=== PATIENT | female | born 1980 | race Caucasian/White ===

== ENCOUNTER 2016-05-04 17:58 | Outpatient (CLI) | payer OTHER ==
[~2016-05-04] VITALS: Ht 154.9 cm; Wt 68.5 kg
[2016-05-04 19:40] VITALS: Ht 154.9 cm; Wt 68.5 kg
--- NOTE | 2016-05-04 19:52 | RADRPT ---
PROCEDURE: US OB. CLINICAL INDICATION: Pelvic pain TECHNIQUE: Multiple sonographic images of the pelvis were obtained. The images were reviewed on a PACS workstation. COMPARISON: No prior studies are available for comparison. FINDINGS: There is a single viable intrauterine gestation. Cardiac activity is present with 161 beats per min matthieu. There is a vertex presentation. The placenta is posterior and grade 1. There is no evidence for an abruption or placenta previa. The proximal volume of amniotic fluid is 4.6 cm. The cervix measures 4.2 cm in length. IMPRESSION: Single live intrauterine with a maximum volume of amniotic fluid of 4.6 cm. RPTAT: HPNM Physician Tre Date Time Electronically viewed and signed by Physician Tre on 05/04/2016 19:52 /
[2016-05-04 20:03] VITALS: BP 107/67; PULSE 98; RESP 18
[2016-05-04] MEDS ORDERED: PRENAT PO (20:06)
[2016-05-04] MEDS ORDERED: FERR325C PO (20:08)
--- NOTE | 2016-05-04 21:20 | QN ---
Documentation Comment 36-year-old with IUP at 24 weeks and 1 day with care at [facility] presented to triage with complaint of pain in right 4 toes. She denies any abnormal discharge from the toes, numbness. She also complains of some cold symptoms. Reports subjective fever. Denies any chills. Denies any sore throat. Reports back pain. Had sick contacts at work. She was noted to be afebrile. Denies any vaginal bleeding, leaking of fluid or uterine contractions or decreased movement. Physical examination: GA: Alert and oriented and is not in acute acute distress. Abdomen: Soft, gravid, fundal height consistent with gestational age, nontender no rebound tenderness no guarding no rigidity HEENT: No lymphadenopathy, no exudates over the tonsils or nasopharynx Lungs: Clear to auscultation bilaterally CV: RRR Extremities: No calf tenderness, no rigidity no cord, no evidence of swelling infection drainage over toes There is evidence of fungus in the big toe of the right foot. No abnormal discharge or drainage no erythema no tenderness next Normal neuro exams. NST: Appropriate for gestational age Cervical length 4.2 cm Amniotic fluid largest pocket measures 4.6 cm PROCEDURE: US OB. CLINICAL INDICATION: Pelvic pain TECHNIQUE: Multiple sonographic images of the pelvis were obtained. The images were reviewed on a PACS workstation. COMPARISON: No prior studies are available for comparison. FINDINGS: There is a single viable intrauterine gestation. Cardiac activity is present with 161 beats per minute. There is a vertex presentation. The placenta is posterior and grade 1. There is no evidence for an abruption or placenta previa. The proximal volume of amniotic fluid is 4.6 cm. The cervix measures 4.2 cm in length. IMPRESSION: Single live intrauterine with a maximum volume of amniotic fluid of 4.6 cm. RPTAT: HPNM Assessment: IUP at 24 weeks and 1 days Cold symptoms, viral illness. Patient is afebrile currently No evidence of labor Toe pain likely related to mechanical pressure, likely from shoes Fungal infection of the right big toe, no evidence of abnormal drainage or discharge Plan: DC home labor precaution given Tylenol 500 mg p.o. 4 times daily P.o. hydration To wear Comfortable shoes RTC PRN any other symptoms, of if symptoms not resolved next Follow-up with OB clinic in 3-4 days MALISSA DOUGHERTY MD May 04, 2016 21:20
--- NOTE | 2016-05-04 21:35 | TRIAGE ---
OB Triage Datetime Report Generated by CPN: 05/04/2016 21:35 Datetime: 05/04/2016 20:41 Stage of : OB Triage Labor Evaluation Frequency: 0 Monitor Mode: External Resting Tone Gu-Win: Relaxed Heart Rate FHR Baseline Rate: 150 Monitor Mode: External US FHR Baseline Changes: No Baseline Change Variability: Moderate 6-25 bpm Accelerations: 15X15 Decelerations: Variable Category: Category I Comments: APPROPRIATE FOR GA Datetime: 05/04/2016 20:07 Stage of : OB Triage Datetime: 05/04/2016 19:20 Stage of : OB Triage Datetime: 05/04/2016 19:00 Stage of : OB Triage Labor Evaluation Frequency: 0 Monitor Mode: External Resting Tone Gu-Win: Relaxed Heart Rate FHR Baseline Rate: 150 Monitor Mode: External US Variability: Moderate 6-25 bpm Accelerations: 10X10 Decelerations: Variable Category: Category I Comments: Appropriate for ga Datetime: 05/04/2016 18:14 Assessment Type: Triage Maternal Assessment Level of Consciousness: Fully Conscious Headache: Denies Blurred Vision: No Respiratory Effort: Unlabored Breath Sounds, Left: Clear and Equal Breath Sounds, Right: Clear and Equal Nausea/Vomiting: Denies RUQ Epigastric Pain: Denies Lower Extremities Edema: None Degree: None Upper Extremities Edema: None Degree: None Facial Edema: None Fall Risk Assessment History of Falling: (0) No Secondary Diagnosis: (15) Yes (Annotations: A2DM ON INSULIN) Ambulatory Aid: (0) Bedrest/Nurse Assist IV Therapy: (0) No Gait: (0) Normal/Bedrest/Immobile Mental Status: (0) Oriented to Own Ability Fall Score: 15 Fall Risk Score Definition: No Risk: No action required Datetime: 05/04/2016 18:13 Time of Arrival: 05/04/2016 17:46 EGA: 24.1 Arrived By: Ambulatory Arrived From: Home Chief Complaint: flu symptoms, R big toe pain rt fungus Movement: Present Contractions: Denies/Absent Rupture of Membranes: Denies Vaginal Bleeding: None Vaginal Discharge: Denies Recent Sexual Intercouse: Denies Abdominal Trauma: Not Applicable Patient Complaints: Other Time Provider Notified: 05/04/2016 18:45 Provider Notified: [facility] Initial Plan: VS, EFM, FAUSTINA, CL Datetime: 05/04/2016 18:11 Monitor Mode: External Monitor Mode: External US
== END 2016-05-04 21:01 | disposition home or self-care (01) ==
LOC: OBT 17:58 → L-D 17:59 → OBT 21:01
PROVIDERS: ATTEND Obstetrics & Gynecology
DX: O99.512 Diseases of the respiratory system complicating pregnancy, second trimester (principal); B34.9 Viral infection, unspecified; O26.892 Other specified pregnancy related conditions, second trimester; M79.674 Pain in right toe(s); R10.2 Pelvic and perineal pain; Z3A.24 24 weeks gestation of pregnancy
CPT/HCPCS: 76815; 76817; G0463

== ENCOUNTER 2016-07-02 11:48 | Inpatient (IN) | payer OTHER ==
[~2016-07-02] VITALS: Ht 154.9 cm; Wt 70.0 kg
[~2016-07-02 11:48] MED LIST: FERR325C PO; PRENAT PO
[2016-07-02 12:43] VITALS: BP 109/63; PULSE 65; RESP 16; Ht 154.9 cm; Wt 70.0 kg
[2016-07-02] MEDS ORDERED: NPH SQ (12:55)
[2016-07-02] MEDS ORDERED: SS SC ×3 (12:55)
[2016-07-02] MEDS ORDERED: MAGNESIUM SULFATE 4 GM/100 ML 100 ML IV ONE (13:00)
[2016-07-02] MEDS: BETAMET NA PHOS/AC(6 MG/ML) 5ML INJ IM SCH (13:04)
[2016-07-02] MEDS: LACTATED RINGER'S 1,000 ML IV SCH ×2 (13:04→17:16)
[2016-07-02 13:35] LABS: ADD SCAN DIFF NO
--- NOTE | 2016-07-02 13:42 | RADRPT ---
PROCEDURE: US OB. Ultrasound cervix CLINICAL INDICATION: Size and dates , labor TECHNIQUE: Multiple sonographic images of the pelvis and gravid uterus were obtained. The images were reviewed on a PACS workstation. In addition, translabial images of the cervix were obtained. COMPARISON: 05/04/2016 FINDINGS: The cervix is closed with a length of 3.3 cm. There is a single viable intrauterine gestation. Cardiac activity is present with 161 beats per min [place]. There is a vertex presentation. The placenta is posterior. There is no evidence for an abruption or placenta previa. Measurements were made in order to determine age. The results are as follows: BPD =7.7 cm HC =28.1 cm AC =27.7 cm FL =6.2 cm Estimated gestational age of approximately 31 weeks and 2 days based on ultrasound measurements. Clinical age: 32 weeks and 4 days. The estimated date of delivery is 09/01/16, based on ultrasound measurements. The EFW = 1803 g, 15.4%, based on LMP age. RPTAT: AA IMPRESSION: Single viable intrauterine gestation of approximately 31 weeks and 2 days based on ultrasound measu rements. .Neptali Harrison MD, Date Time Electronically viewed and signed by .Neptali Harrison MD, on 07/02/2016 13:41 .S/
[2016-07-02] MEDS: MAGNESIUM SULFATE 20 GM/500 ML 500 ML IV SCH (13:49)
[2016-07-02 13:50] LABS: BASOPHILS % 0.3 % (0.0-2.0); EOSINOPHILS # 0.3 10^3/ul (0.0-0.5); EOSINOPHILS % 2.4 % (0.0-7.0); HEMATOCRIT 39.6 % (37.0-47.0); HEMOGLOBIN 13.6 g/dl (12.0-16.0); LYMPHOCYTES # 2.1 10^3/ul (0.8-2.9); LYMPHOCYTES % 19.3 % (15.0-51.0); MEAN CORPUSCULAR HEMOGLOBIN 32.2 pg (29.0-33.0); MEAN CORPUSCULAR HGB CONC 34.3 g/dl (32.0-37.0); MEAN CORPUSCULAR VOLUME 93.8 fl (82.0-101.0); MEAN PLATELET VOLUME 9.8 fl (7.4-10.4); MONOCYTE # 0.5 10^3/ul (0.3-0.9); MONOCYTES % 4.7 % (0.0-11.0); NEUTROPHIL # 7.8 10^3/ul (1.6-7.5); NEUTROPHILS % 72.8 % (39.0-77.0); PLATELET COUNT 203 10^3/UL (140-415); RED BLOOD COUNT 4.22 10^6/ul (4.20-5.40); RED CELL DISTRIBUTION WIDTH 13.5 % (11.5-14.5); WHITE BLOOD COUNT 10.8 10^3/ul (4.8-10.8)
[2016-07-02 14:02] LABS: ALBUMIN 3.6 g/dl (3.3-4.9); INR 0.89; POTASSIUM 3.7 mmol/L (3.5-5.1); PT RATIO 0.9
[2016-07-02 14:03] LABS: PARTIAL THROMBOPLASTIN TIME 26.4 Sec (25.0-35.0)
[2016-07-02 14:04] LABS: CREATININE 0.42 mg/dl (0.44-1.00)
[2016-07-02 14:05] LABS: ALBUMIN/GLOBULIN RATIO 1.09; BILIRUBIN,INDIRECT 0.6 mg/dl (0-1.1); BILIRUBIN,TOTAL 0.6 mg/dl (0.2-1.3); TOTAL PROTEIN 6.9 g/dl (6.1-8.1)
--- NOTE | 2016-07-02 17:18 | HP ---
Date/Time of Note Date/Time of Note DATE: 07/02/16 TIME: 17:02 OB - History Hx of Present Free Text/Dictation 36 years old female 1 para 0 EDC of August 23, 2016 32 weeks her is complicated with type II-NIDDM currently on insulin admitted to [facility] with chief complaint of contraction. She has been taking insulin at home Novolin 6 units and NPH 9 units after breakfast Novolin 7 units before dinner. Estimated Due Date: Aug 23, 2016 : 1 Para: 0 Past Family/Social History * Past Medical, Surgical, Family and Obstetric Histories reviewed from chart. OB Admission Exam Vital Signs Vital Signs Vital Signs Date Time Temp Pulse Resp B/P Pulse Ox O2 Delivery O2 Flow Rate FiO2 07/02/16 12:43 97.0 65 16 109/63 Physical Exam HEENT: WNL Heart: Rhythm Normal Lungs: Clear, Equal Extremities: Normal Reflexes: Normal Cervical Dilatation: None (Pelvic examination deferred cervical length by ultrasound 3.6) Station: Ballotable Membranes: Intact Heart Rate: 130's Accelerations: Accelerations Present Varibility: Moderate Contractions on Admission: 6-10 Minutes Apart Intensity: Mild Last 72 hourBlood Glucose Bedside Glucose - 72 Hours Test 07/02/16 15:45 Bedside Glucose 89mg/dL (70-220) Last 72 hours Lab Results CBC & BMP 07/02/16 12:30 Liver Function Test 07/02/16 12:30 Alanine Aminotransferase (ALT/SGPT) 19 Albumin 3.6 Alkaline Phosphatase 116 Aspartate Amino Transf (AST/SGOT) 18 Direct Bilirubin 0.00 Total Protein 6.9 OB Assessment/Plan Reason for admission: other ( labor, tocolysis with magnesium sulfate) Plan: Other (Tocolysis with magnesium sulfate) GABO NUNEZ MD Jul 02, 2016 17:13
[2016-07-02] MEDS ORDERED: GLUCOSE GEL 15 GRAM TUBE PO PRN ×2 (21:00)
[2016-07-02] MEDS ORDERED: INSULIN ASPART [NOVOLOG] 3 ML PEN SC SCH (21:00)
[2016-07-02] MEDS ORDERED: GLUCAGON 1 MG INJ IM PRN (21:00)
[2016-07-02] MEDS ORDERED: DEXTROSE 50% 50 ML SYRINGE IV PRN ×2 (21:00)
[2016-07-02] MEDS ORDERED: GLUCOSE GEL 15 GRAM TUBE BUCCAL PRN (21:00)
[2016-07-02] MEDS: NPH, HUMAN INSULIN ISOPHANE 3ML VIAL SC SCH (22:31)
[2016-07-03] MEDS: MAGNESIUM SULFATE 20 GM/500 ML 500 ML IV SCH ×3 (00:36→21:29)
[2016-07-03] MEDS: LACTATED RINGER'S 1,000 ML IV SCH ×2 (06:18→14:34)
[2016-07-03] MEDS: NPH, HUMAN INSULIN ISOPHANE 3ML VIAL SC SCH ×2 (07:30→21:18)
[2016-07-03] MEDS ORDERED: INSULIN REGULAR, HUMAN 100 UNIT/1 ML 3ML VIAL SC SCH (08:30)
[2016-07-03] MEDS: INSULIN ASPART [NOVOLOG] 3 ML PEN SC SCH (08:36)
[2016-07-03] MEDS: BETAMET NA PHOS/AC(6 MG/ML) 5ML INJ IM SCH (13:02)
--- NOTE | 2016-07-03 13:03 | CONS ---
DATE OF ADMISSION: 07/02/2016 DATE OF CONSULTATION: 07/02/2016 REFERRING PHYSICIAN: Dr. Bhatti HISTORY OF PRESENT ILLNESS: I was asked to talk with this mother who is 32.4 weeks in labor . This is a 36-year-old 1, para 0 at 32.4 weeks estimated gestational age with an estimated fe arya weight of 1803 grams. EDC 09/03/2016. Mother's labs show a blood type of O positive, RPR nonreactive, HBsAg negative, HIV negativ e and GBS not done. There is no history of hypertension, alcohol, tobacco or drug use. Mother has history of diabetes for 1 year and she has been on metformin. During she was changed to i nsulin and is taking 3 times a day and states that her blood sugars are under good control. Mother was admitted on 07/02/2016 in labor and is on magnesium sulfate. Mother also receive d 1 dose of betamethasone on July 02 at 1301 and will receive the second dose today. Her contracti ons are improving and good and she is stable at the present time. I discussed with mom about the fetus being 32.4 weeks and to be monitored for work of breathing as w ell as respiratory distress on delivery. I discussed about treatment with oxygen administration and pressure, including high-flow nasal cannula as well as CPAP and nasal IMV and Curosurf administrati on if does have premature lung problem. I also discussed about the risk of infection, the in [place] being premature and blood cultures and CBC to be obtained and subsequently to be monitored for infections or any antibiotics administered if the infant is at high risk for sepsis. Discussed abou t risk of apnea, including treatment with observation, nasal cannula or high-flow nasal cannula or CPAP and caffeine administration. I also discussed about risk for hyperbilirubinemia which was inc reased due to prematurity and treatment with phototherapy. Discussed about minimal risk of intraven tricular hemorrhage, which would increase the risk of neurodevelopmental delay. I also discussed ab out the risk of neurodevelopmental delay, which is increased due to prematurity. Discussed about th e being n.p.o. on admission to be started on IV nutrition and subsequently to be started on f eedings on feeding protocol with gavage feedings and subsequently to be changed to p.o. feedings whe n the shows readiness of p.o. feeding. Mother would like to pump the breast milk and encoura ged her to obtain a breast pump and pump as soon as possible. I also discussed about the risks and benefits of breast milk as well as formula. Discussed about length of stay up to 2 to 3 weeks or longer depending on infant's clinical condition and the feeding readiness. We discussed about the risk of neurodevelopmental delay and the followu p plans. I also discussed about the survival rate of greater than 95% and good prognosis. Mother w as reassured about good prognosis. Discussed about discharge, when the eats with all bottle of breast milk and gaining weight an d is able to maintain temperature and have no other medical problems. All parent's questions were a nswered and the discussion was concluded that mother had no further questions. Thank you for the consult. We will continue to follow with you. Dictated By: SANTIAGO TATE/OSCAR Conf#: [id number] DID#: [id number]
[2016-07-03] MEDS ORDERED: ONDANSETRON 4 MG INJ IV PRN (14:00)
--- NOTE | 2016-07-03 14:07 | PN ---
Date/Time of Note Date/Time of Note DATE: 07/03/16 TIME: 13:48 OB Subjective Subjective Subjective Afebrile vital signs stable, received 2 doses of betamethasone still on magnesium sulfate 2 gm every hour , has 4-5 contractions per hour but less than 50% felt, cervical length by ultrasound 3.3 estimated weight 04/01/2002, her fasting blood sugar 114 mg and 2 hours postprandial 124 mg , perinatologist plan to discontinue magnesium sulfate tomorrow at 1300, we will continue monitoring closely her sugar level and uterine contraction. OB Assessment/Plan Reason for admission: IUP - , labor Plan: Other (To adjust her blood sugar and stop contractions) GABO NUNEZ MD Jul 03, 2016 14:04
[2016-07-03] MEDS: INSULIN ASPART [NOVOLOG] 3 ML PEN SC PRN ×2 (15:07→20:27)
[2016-07-03] MEDS ORDERED: INSULIN ASPART [NOVOLOG] 3 ML PEN SC SCH (17:35)
[2016-07-04] MEDS ORDERED: ACETAMINOPHEN 325 MG TAB PO PRN (01:30)
[2016-07-04] MEDS: INSULIN ASPART [NOVOLOG] 3 ML PEN SC PRN ×3 (03:03→20:40)
[2016-07-04] MEDS: MAGNESIUM SULFATE 20 GM/500 ML 500 ML IV SCH (07:35)
[2016-07-04] MEDS: LACTATED RINGER'S 1,000 ML IV SCH ×2 (07:36→17:49)
[2016-07-04] MEDS: NPH, HUMAN INSULIN ISOPHANE 3ML VIAL SC SCH ×2 (08:45→21:41)
[2016-07-04] MEDS: INSULIN ASPART [NOVOLOG] 3 ML PEN SC SCH ×2 (08:47→18:29)
[2016-07-04] MEDS: NIFEdipine 10 MG CAP PO SCH ×2 (14:17→22:07)
--- NOTE | 2016-07-04 16:27 | PN ---
Date/Time of Note Date/Time of Note DATE: 07/04/16 TIME: 15:59 OB Subjective Subjective Subjective Afebrile vital signs are stable magnesium sulfate stopped at 1300 to she was placed Procardia 20 mg every 6 hours ,still has some contraction but mostly not felt pelvic examination cervix approximate 3 cm long with presenting part ballotable, ultrasound report for cervical length 3.3 cm, with present current treatment of her diabetes blood sugar at 7:41 was 130 and at 1110 was 124 milligrams, telephone perinatology consult recommended may be discharge home and be followed at [facility] clinic twice per week as outpatient. OB Assessment/Plan Reason for admission: IUP - Plan: Expectant Management, Other (To continue her diabetic medication as before follow-up at [facility] clinic 2 times per week recommended bedrest at home Procardia 20 mg 4 times daily prescribed, advised to make her first appointment for 07/06/16 or07/09/16) Induction Method: other (33 weeks type 2 diabetes labor) GABO NUNEZ MD Jul 04, 2016 16:10
[2016-07-04] MEDS ORDERED: BISACODYL (EC) 5 MG TAB PO STA (19:55)
[2016-07-04] MEDS ORDERED: NPH, HUMAN INSULIN ISOPHANE 3ML VIAL SC SCH (20:00)
[2016-07-05] MEDS: LACTATED RINGER'S 1,000 ML IV SCH ×3 (01:53→17:49)
[2016-07-05] MEDS ORDERED: BISACODYL (EC) 5 MG TAB PO PRN (04:00)
[2016-07-05] MEDS: NIFEdipine 10 MG CAP PO SCH ×5 (04:45→22:59)
[2016-07-05] MEDS: INSULIN ASPART [NOVOLOG] 3 ML PEN SC SCH ×3 (08:30→17:34)
[2016-07-05] MEDS: NPH, HUMAN INSULIN ISOPHANE 3ML VIAL SC SCH ×2 (08:43→21:27)
--- NOTE | 2016-07-05 12:47 | PN ---
Date/Time of Note Date/Time of Note DATE: 07/05/16 TIME: 12:36 OB Subjective Subjective Subjective Patient is still conchita between 5-7/h and reporting that she feels some of these contractions while still taking Procardia 20 mg every 6 hours, her cervical length of July 04 was 3.3 cm requested to repeat ultrasound for cervical length to see if there are any changes in the past 24 hours , discharge plan is pending ultrasound report GABO NUNEZ MD Jul 05, 2016 12:46
--- NOTE | 2016-07-05 15:48 | RADRPT ---
PROCEDURE: Limited obstetric ultrasound CLINICAL INDICATION: Pain , contractions TECHNIQUE: Multiple transverse and longitudinal grayscale images of the pelvis were obtained dougherty sabdominally and transvaginally.. COMPARISON: 07/02/2016 FINDINGS: The cervix is closed with a length of 3.6 cm. There is a single viable intrauterine gestation. Cardiac activity is present with 142 beats per min [place]. There is a vertex presentation. The placenta is fundal. There is no evidence for an abruption or placenta previa. RPTAT: AA IMPRESSION: Cervix length measures 3.6 cm. .Neptali Harrison MD, MD Date Time Electronically viewed and signed by .Neptali Harrison MD, on 07/05/2016 15:48 .S/
[2016-07-05] MEDS: INSULIN ASPART [NOVOLOG] 3 ML PEN SC PRN (15:49)
--- NOTE | 2016-07-05 22:24 | DS ---
Date/Time of Note Date/Time of Note DATE: 07/05/16 TIME: 22:19 Obstetrical Discharge Record Final Diagnosis Final Diagnosis: not delivered Other Final Diagnosis IUP 33WEEKS 3DAYS BDM IDDM LABOR RESOLVED PTL ON PROCARDIA S/P BETAMETHASONE X2 MAGNESIUM SULFATE FFOR NEUROPROTECTION NST REACTIVE Complications Insulin Dependent Diabete, Other Augmentation: No Induction: No Tocolytics: Magnesium Sulfate Rupture of Membranes: No Condition on Discharge Physical Assessment Patient Condition: Stable BRIANA MORALES MD Jul 05, 2016 22:24
--- NOTE | 2016-07-05 22:58 | PD.PPDC ---
MOTION PICTURE PRINTER Discharge Instruction Diagnosis Final Diagnosis: IUP [id number] Condition Patient Condition: Stable Diet Diet: Special Diet Special Diet: ADA 2000CAL Activity/Restrictions Activity: Bedrest Follow-up Follow-up with Physician: 3, Day/Days, Week/Weeks Return to clinic for Comment: RTC FOR BIWEEKLY APT AND RTH PRN WITH ROUTINE LABOR INSTRUC BRIANA ART MD Jul 05, 2016 22:58
== END 2016-07-05 23:10 | disposition home or self-care (01) | DRG 778 ==
LOC: OBT 11:48 → L-D 11:49 → OBT 12:35 → L-D 12:37 → OBG 20:16
PROVIDERS: ADMIT Obstetrics & Gynecology; ATTEND Obstetrics & Gynecology
DX: O60.03 Preterm labor without delivery, third trimester (principal); O24.113 Pre-existing type 2 diabetes mellitus, in pregnancy, third trimester; Z3A.32 32 weeks gestation of pregnancy; E11.9 Type 2 diabetes mellitus without complications; Z79.4 Long term (current) use of insulin
CPT/HCPCS: 76815; 76817; 80053; 82962; 83735; 85025; 85610; 85730; 86592; G0463; J0702; J1815; J3475; J7120

== ENCOUNTER 2016-07-12 16:18 | Inpatient (IN) | payer OTHER ==
[~2016-07-12 16:18] MED LIST changes: +NPH SQ; +SS SC
--- NOTE | 2016-07-12 17:19 | RADRPT ---
PROCEDURE: Limited obstetric ultrasound CLINICAL INDICATION: labor TECHNIQUE: Multiple transverse and longitudinal grayscale images of the pelvis were obtained dougherty sabdominally and endovaginally.. COMPARISON: Obstetrical ultrasound from 07/05/2016 FINDINGS: There is a single live intrauterine gestation in a vertex position with a heart rate of 134 bp m. The placenta is posterior and fundal in location. There is no evidence of an abruption or placen ta previa. The cervix is closed and measures 3.2 cm in length. RPTAT: EE IMPRESSION: The cervix is closed and measures 3.2 cm in length. Physician Ebenezer Date Time Electronically viewed and signed by Physician Ebenezer on 07/12/2016 17:18 /
[2016-07-12] MEDS: LACTATED RINGER'S 1,000 ML IV ONE ×2 (17:20→17:28)
--- NOTE | 2016-07-12 17:22 | RADRPT ---
PROCEDURE: OB ultrasound for biophysical profile CLINICAL INDICATION: Biophysical profile. . TECHNIQUE: Multiple sonographic images of the pelvis were obtained. Transabdominal and transvagin al view of the gravid uterus are available for review. COMPARISON: 07/12/2016 OB ultrasound FINDINGS: Single intrauterine gestation. Presentation: Cephalic. Placental position: Fundal No evidence of placental abruption. No evidence of placenta previa. Cervix is closed as visualized transvaginally measuring 3.0 cm without evidence of funneling breathing movement = 2/2 tone = 2/2 motion = 2/2 FAUSTINA = 2/2 FAUSTINA = 8.5 cm; previous measurement of 14.6 cm may be due to differences in technique. heart rate: 133 beats per minute IMPRESSION: Single intrauterine gestation. Biophysical profile 10/30 Possibly decreased amniotic fluid index may relate to differences in imaging technique. Follow-up i s recommended. RPTAT: AADD .Sammy March MD, MD Date Time Electronically viewed and signed by .Sammy March MD, on 07/12/2016 17:22 .B/
[2016-07-12] MEDS ORDERED: NIFEdipine 10 MG CAP ONE (18:27)
[2016-07-12] MEDS ORDERED: NIFEdipine 10 MG CAP PO ONE (18:30)
--- NOTE | 2016-07-12 19:03 | HP ---
Date/Time of Note Date/Time of Note DATE: 07/12/16 TIME: 18:52 OB - History Hx of Present Free Text/Dictation July 12, 2016 History and physical : This patient is 36 years old 1 para 0 with EDC of August 23, 2016 which makes her 34 weeks . she came to triage area complaining of uterine contractions which every 2-4 minutes. She has gestational diabetes mellitus type 2 on insulin, she is also taking Procardia 20 mg every 6 hours . In triage hydration was give to taper the contractions however her contraction continued and we decided to admit her in the hospital and start max sulfate . She received two injections of betamethasone 12 hours apart a week ago when she was hospitalized . On examination she is a well-nourished well-developed ,her blood pressure is 101/64 temperature 98.2 On pelvic examination her cervix was 1 fingertip ,thick and high. Her biophysical profile was reported 10/30 with FAUSTINA of 8.5 cm , her previous FAUSTINA measurement was 14.6 On obstetrical ultrasound ;single live intrauterine was reported with a heartbeat of 133 placenta was posterior no evidence of abruption Due to the fact that hydration was not effective in controlling her contractions we will admit her in the antepartum and will start her on mag sulfate.As I mentioned she is already on Procardia 20 mg 4 times a day Current Medications Medications (Trade) Dose Ordered Sig/Zaid Route PRN Reason Start Time Stop Time Status Last Admin Dose Admin Lactated Ringer's (Lr) 1,000 ml @ 1,000 mls/hr Q1H ONCE IV 07/12/16 17:00 07/12/16 17:59 DC 07/12/16 17:28 Nifedipine (Procardia) 20 mg ONCE ONCE PO 07/12/16 18:30 07/12/16 18:44 DC 07/12/16 18:30 Nifedipine (Procardia) 10 mg STK-MED ONCE .ROUTE 07/12/16 18:27 07/12/16 18:28 DC Past Family/Social History * Past Medical, Surgical, Family and Obstetric Histories reviewed from chart. TIAN ALCALA MD Jul 12, 2016 19:02
[2016-07-12] MEDS: LACTATED RINGER'S 1,000 ML IV SCH (19:51)
[2016-07-12] MEDS ORDERED: GLUCAGON 1 MG INJ IM PRN (20:00)
[2016-07-12] MEDS ORDERED: GLUCOSE GEL 15 GRAM TUBE BUCCAL PRN (20:00)
[2016-07-12] MEDS ORDERED: DEXTROSE 50% 50 ML SYRINGE IV PRN ×2 (20:00)
[2016-07-12] MEDS ORDERED: GLUCOSE GEL 15 GRAM TUBE PO PRN ×2 (20:00)
[2016-07-12] MEDS ORDERED: ACCU-CHEK XX SCH ×3 (20:05)
[2016-07-12] MEDS: ACCU-CHEK XX SCH (20:19)
[2016-07-12] MEDS ORDERED: DIPHENHYDRAMINE 50 MG CAP PO ONE (21:00)
[2016-07-12] MEDS ORDERED: INSULIN ISOPHANE (NPH) 10 ML INJ SC SCH (21:00)
--- NOTE | 2016-07-12 21:14 | PN ---
Date/Time of Note Date/Time of Note DATE: 07/12/16 TIME: 21:10 OB Subjective Subjective Subjective Addendum: Went to check on patient; cervix unchanged and patient looks comfortable. Will hold off on magnesium sulfate, and give benadryl to help patient sleep. She will be re-evaluated in the morning or if she starts conchita strongly again. CEFERINO CROW MD Jul 12, 2016 21:14
[2016-07-12] MEDS: INSULIN ASPART [NOVOLOG] 3 ML PEN SC SCH (21:54)
[2016-07-13] MEDS: LACTATED RINGER'S 1,000 ML IV SCH ×2 (02:38→11:00)
[2016-07-13] MEDS: ACCU-CHEK XX SCH (07:30)
[2016-07-13] MEDS ORDERED: INSULIN ISOPHANE (NPH) 10 ML INJ SC SCH (07:30)
[2016-07-13] MEDS ORDERED: INSULIN ASPART [NOVOLOG] 3 ML PEN SC SCH (08:00)
[2016-07-13] MEDS: NIFEdipine 10 MG CAP PO SCH ×3 (10:14→17:48)
--- NOTE | 2016-07-13 10:16 | PN ---
Date/Time of Note Date/Time of Note DATE: 07/13/16 TIME: 10:13 OB Subjective Subjective Subjective Patient denies any contractions. Reports never feeling them. Started on procardia a week ago for asymptomatic contractions on NST for GDMA2. BS controlled. OB Objective Objective Objective Gen: NAD Abd: gravid, NT FHT: reactive [place]: +UCs OB Assessment/Plan Other Assessment: at 34.1 weeks with asymptomatic contractions. Other plan: Restart procardia. Discharge home with ptl precautions if contractions improve. MARGARITO JACKSON Jul 13, 2016 10:16
--- NOTE | 2016-07-13 15:05 | NSTRPT ---
NST Information Datetime Report Generated by CPN: 07/13/2016 15:05 Datetime: 07/12/2016 14:12 NST Information EGA: 34.0 Test Number: 2 Time on Monitor: 07/12/2016 14:31 Time off Monitor: 07/12/2016 15:30 NST Duration (Min): 59 Reason for NST: Diabetes Mellitus; Other Reason for NST Other: Type II Test and Monitor Explained: Monitor Explained; Test Explained; Verbalized Understanding Pulse: 81 Resp: 16 SBP: 102 DBP: 62 Test Evaluation NST Interventions: Reposition Patient; Acoustic Stimulation Patient States Movement: Present Contraction Frequency: q2-3min, denies FHR Baseline : 150 Variability: Moderate 6-25bpm Accelerations: 10X10 Decelerations: None FHR Category: Category I NST Results: Questionable Comments: Pt to U/S, cephalic, faustina 14.6, fbs 114 Dr. Zimmerman called and informed of patient contractions q2-3minutes, patient denies feeling any of them. also informed that Dr. Espinoza reviewed strip and recommends extended monitori ng in OB Triage. Dr. Zimmerman agrees with plan, orders received to send pt to OB Triage now for exte nded monitoring. 1537-Pt to OB Triage now, follow-up NST appointment given. Pt verbalizes understanding and denies questions. Datetime: 07/02/2016 09:31 NST Information EGA: 32.4 Test Number: 1 Time on Monitor: 07/02/2016 10:03 Time off Monitor: 07/02/2016 13:54 NST Duration (Min): 231 Reason for NST: Diabetes Mellitus; Other Reason for NST Other: Type II Test and Monitor Explained: Monitor Explained; Test Explained; Verbalized Understanding Pulse: 67 Resp: 18 SBP: 113 DBP: 60 Test Evaluation NST Interventions: PO Hydration Contraction Frequency: Q 4-7 FHR Baseline : 135 Variability: Moderate 6-25bpm Accelerations: 15X15 Decelerations: None FHR Category: Category I NST Results: Reactive Provider Notified: Dr. Bhatti Comments: To u/s, FAUSTINA 13.4, Cephalic. FBS-98. 1122-Report to Dr Bhatti, order received to send to triage for eval of PTL. Report called to Trevor jeffrey RN, L_D. POC discussed with pt, states understanding. 1135-Pt to triage, with follow up appt. den ies further questions. Electronically Signed By E-Signature: with User ID: [id number]
[2016-07-13] MEDS: INSULIN ASPART [NOVOLOG] 3 ML PEN SC SCH (17:45)
== END 2016-07-13 18:50 | disposition home or self-care (01) | DRG 780 ==
LOC: OBT 16:18 → L-D 16:18 → OBT 18:25 → OBG 18:25
PROVIDERS: ADMIT Obstetrics & Gynecology; ATTEND Obstetrics & Gynecology
DX: O47.03 False labor before 37 completed weeks of gestation, third trimester (principal); Z3A.34 34 weeks gestation of pregnancy
CPT/HCPCS: 36415; 76817; 76818; 82962; 96360; G0463; J1815; J7120

== ENCOUNTER 2016-07-30 15:43 | Outpatient (CLI) | payer OTHER ==
[~2016-07-30] VITALS: Ht 154.9 cm; Wt 71.0 kg
[2016-07-30 16:40] VITALS: Ht 154.9 cm; Wt 71.0 kg
[2016-07-30 16:42] VITALS: BP 116/67; PULSE 63; RESP 20
--- NOTE | 2016-07-30 18:32 | RADRPT ---
PROCEDURE: US OB. CLINICAL INDICATION: Nonreactive strip TECHNIQUE: Multiple sonographic images of the pelvis were obtained. The images were reviewed on a PACS workstation. COMPARISON: 07/12/2016 FINDINGS: There is a single live intrauterine . cardiac activity is identified at a rate of 14 6 beats per minute. presentation is cephalic. Placenta is fundal to the left grade 1 Biophysical profile score is as follows: Breathing 2 Movements 2 Tone 2 Fluid volume 2 Amniotic fluid index = 13.6 cm Total biophysical profile score = 8/8 IMPRESSION: Biophysical profile score = 8/8 RPTAT: HH .Yury Negron MD, Date Time Electronically viewed and signed by .Yury Negron MD, MD on 07/30/2016 18:32 .W/
[2016-07-30] MEDS ORDERED: LACTATED RINGER'S 500 ML IV* SCH (20:30)
[2016-07-30] MEDS ORDERED: LACTATED RINGER'S 1,000 ML IV SCH (20:30)
--- NOTE | 2016-07-31 05:47 | PN ---
Date/Time of Note Date/Time of Note DATE: 07/31/16 TIME: 05:40 OB Subjective Subjective Subjective 36 yrs old primigravida at 36w4d who has been sent for extended NST for nonreactive nst patient has been on insulin OB Objective Objective Objective NST REACTIVE AFTER HYDRATION BPP 10/30 AFI13.6 OB Assessment/Plan Other Assessment: IUP 36w4d IDDM Other plan: return to NST aug 01 2016 BRIAAN MORALES MD July 31, 2016 05:47
== END 2016-07-31 00:25 | disposition home or self-care (01) ==
LOC: OBT 15:43 → L-D 15:43 → OBG 15:45 → OBT 07-31 00:25
PROVIDERS: ATTEND Obstetrics & Gynecology
DX: O24.313 Unspecified pre-existing diabetes mellitus in pregnancy, third trimester (principal); E11.9 Type 2 diabetes mellitus without complications; Z3A.36 36 weeks gestation of pregnancy; Z79.4 Long term (current) use of insulin
CPT/HCPCS: 76818; 82962; J7120; 36415; 96360; 96361; G0463

== ENCOUNTER 2016-08-01 22:00 | Inpatient (IN) | payer OTHER ==
[~2016-08-01] VITALS: Ht 154.9 cm; Wt 73.0 kg
[2016-08-01 22:39] VITALS: BP 117/70; PULSE 63; RESP 18
[2016-08-01 23:02] VITALS: Ht 154.9 cm; Wt 73.0 kg
[2016-08-01] MEDS ORDERED: METHYLERGONOVINE 0.2 MG INJ IM PRN (23:30)
[2016-08-01] MEDS ORDERED: IBUPROFEN 600 MG TAB PO PRN (23:30)
[2016-08-01] MEDS ORDERED: OXYTOCIN 30 UNITS/LR 500 ML IV PRN (23:30)
[2016-08-01] MEDS ORDERED: BUTORPHANOL 2 MG INJ IV PRN (23:30)
[2016-08-01] MEDS ORDERED: CARBOPROST 250 MCG INJ IM PRN (23:30)
[2016-08-01] MEDS ORDERED: MISOPROSTOL 200 MCG TAB PR PRN (23:30)
[2016-08-01] MEDS ORDERED: OXYTOCIN 30 UNITS/LR 500 ML IV SCH ×2 (23:30)
[2016-08-01] MEDS ORDERED: LIDOCAINE 1% (MPF) 30 ML INJ INJ PRN (23:30)
[2016-08-01 23:39] LABS: ADD SCAN DIFF NO
[2016-08-01 23:42] LABS: BASOPHILS % 0.3 % (0.0-2.0); EOSINOPHILS # 0.2 10^3/ul (0.0-0.5); EOSINOPHILS % 2.1 % (0.0-7.0); HEMATOCRIT 37.1 % (37.0-47.0); HEMOGLOBIN 13.4 g/dl (12.0-16.0); LYMPHOCYTES % 20.6 % (15.0-51.0); MEAN CORPUSCULAR HEMOGLOBIN 32.8 pg (29.0-33.0); MEAN CORPUSCULAR HGB CONC 36.1 g/dl (32.0-37.0); MEAN CORPUSCULAR VOLUME 90.7 fl (82.0-101.0); MEAN PLATELET VOLUME 10.1 fl (7.4-10.4); MONOCYTE # 0.6 10^3/ul (0.3-0.9); MONOCYTES % 6.5 % (0.0-11.0); NEUTROPHIL # 6.9 10^3/ul (1.6-7.5); NEUTROPHILS % 70.1 % (39.0-77.0); PLATELET COUNT 204 10^3/UL (140-415); RED BLOOD COUNT 4.09 10^6/ul (4.20-5.40); RED CELL DISTRIBUTION WIDTH 12.9 % (11.5-14.5); WHITE BLOOD COUNT 9.9 10^3/ul (4.8-10.8)
[2016-08-01 23:45] LABS: INR 0.91; PROTIME 12.3 Sec (12.2-14.2)
[2016-08-01 23:46] LABS: PARTIAL THROMBOPLASTIN TIME 23.3 Sec (25.0-35.0)
[2016-08-01 23:48] LABS: ALBUMIN 3.3 g/dl (3.3-4.9); ALBUMIN/GLOBULIN RATIO 1.03; BILIRUBIN,INDIRECT 0.4 mg/dl (0-1.1); BILIRUBIN,TOTAL 0.4 mg/dl (0.2-1.3); CALCIUM 8.9 mg/dl (8.4-10.2); CREATININE 0.42 mg/dl (0.44-1.00); POTASSIUM 3.9 mmol/L (3.5-5.1); TOTAL PROTEIN 6.5 g/dl (6.1-8.1)
[2016-08-02] MEDS ORDERED: DINOPROSTONE 10 MG VAG SUPP VAG ONE (00:01)
--- NOTE | 2016-08-02 00:14 | RADRPT ---
PROCEDURE: US OB. CLINICAL INDICATION: Active labor TECHNIQUE: Pelvic ultrasound performed for biophysical profile. COMPARISON: 07/30/2016 FINDINGS: Single intrauterine gestation present with heart rate at 141 beats per minute. Presentation is ceph alic. Placenta is left lateral, grade II. Biophysical profile score is 8/8 (breathing=2, movement= 2, tone =2, fluid volume=2). Amniotic fluid volume is within normal limits, with FAUSTINA = 12.4 cm. RPTAT:HJJR IMPRESSION: 1. Biophysical profile score 8/8. 2. Amniotic fluid index measured at 12.4 cm, previously 13.6 cm on the study of 07/30/2016. Physician Sophy Date Time Electronically viewed and signed by Jerel Stephenson Physician on 08/02/2016 00:14 /
[2016-08-02] MEDS ORDERED: GLUCOSE GEL 15 GRAM TUBE BUCCAL PRN (00:15)
[2016-08-02] MEDS ORDERED: DEXTROSE 50% 50 ML SYRINGE IV PRN ×2 (00:15)
[2016-08-02] MEDS ORDERED: GLUCOSE GEL 15 GRAM TUBE PO PRN ×2 (00:15)
[2016-08-02] MEDS ORDERED: GLUCAGON 1 MG INJ IM PRN (00:15)
[2016-08-02] MEDS: LACTATED RINGER'S 1,000 ML IV SCH ×3 (00:46→08:38)
[2016-08-02] MEDS ORDERED: LACTATED RINGER'S 1,000 ML IV PRN (05:00)
[2016-08-02] MEDS ORDERED: INSULIN REGULAR, HUMAN 100 UNIT/1 ML 3ML VIAL SC SCH ×2 (08:30→17:00)
[2016-08-02] MEDS ORDERED: NPH, HUMAN INSULIN ISOPHANE 3ML VIAL SC SCH ×2 (08:30→21:00)
[2016-08-02] MEDS ORDERED: DEXTROSE 5%-LR 1,000 ML IV PRN (11:00)
[2016-08-02] MEDS ORDERED: CITRIC ACID/NA CITRATE 30 ML CUP PO ONE (16:00)
[2016-08-02] MEDS ORDERED: CEFAZOLIN 2 GM/50 ML (PMX) 50 ML IVPB SCH (16:00)
[2016-08-02] MEDS ORDERED: KETOROLAC 30 MG INJ ONE (16:31)
[2016-08-02] MEDS ORDERED: METOCLOPRAMIDE 10 MG INJ ONE (16:31)
[2016-08-02] MEDS ORDERED: morphine SULFATE/PF (10 MG/10 ML) INJ ONE (16:31)
--- NOTE | 2016-08-02 17:03 | QN ---
Documentation Comment Please consult with patent law specialist for post insulin adjustment GABO NUNEZ MD August 02, 2016 17:03
[2016-08-02] MEDS ORDERED: MEPERIDINE 100 MG INJ ONE (17:13)
[2016-08-02] MEDS ORDERED: OXYTOCIN 30 UNITS/LR 500 ML IV ONE (17:28)
[2016-08-02] MEDS ORDERED: METOCLOPRAMIDE 10 MG INJ IV PRN (18:00)
[2016-08-02] MEDS ORDERED: ONDANSETRON 4 MG INJ IV PRN ×2 (18:00)
[2016-08-02] MEDS ORDERED: HYDROmorphONE 1 MG/ML SYG IV PRN ×3 (18:00)
[2016-08-02] MEDS ORDERED: MEPERIDINE 25 MG INJ IV PRN (18:00)
[2016-08-02] MEDS ORDERED: NALOXONE (0.4 MG/ML) INJ IV PRN (18:00)
[2016-08-02] MEDS ORDERED: KETOROLAC 30 MG INJ IV PRN (18:00)
[2016-08-02] MEDS ORDERED: DIPHENHYDRAMINE 50 MG INJ IV PRN ×2 (18:00)
[2016-08-02] MEDS ORDERED: HYDROmorphONE (0.2 MG/ML) 10ML SYG IV PRN ×3 (18:00)
--- NOTE | 2016-08-02 18:19 | HP ---
Date/Time of Note Date/Time of Note DATE: 08/02/16 TIME: 18:09 OB - History Hx of Present Free Text/Dictation This is a 36 years old female 1 para 0 EDC August 23, 2067 A2 diabetic referred from perinatology clinic due to nonreassuring heart tracing late deceleration ,minimal or no acceleration for operative delivery by section This patient has been under the care of [facility] and her has been complicated with a 2 diabetes insulin-dependent patient been taking metformin prior to this Estimated Due Date: Aug 23, 2016 : 1 Para: 0 Care: Good Care Ultrasounds: Normal mid trimester US Obstetrical Complications: Gestational Diabetes Past Family/Social History * Past Medical, Surgical, Family and Obstetric Histories reviewed from chart. Rubella: immune RPR/VDRL: Negative GBS Status: Negative HBsAG: Negative OB Admission Exam Vital Signs Vital Signs Vital Signs Date Time Temp Pulse Resp B/P Pulse Ox O2 Delivery O2 Flow Rate FiO2 08/01/16 22:39 98.0 63 18 117/70 Room Air Physical Exam Heart: Rhythm Normal Lungs: Clear, Equal Abdomen: WNL Extremities: Normal Reflexes: Normal Cervical Dilatation: None Effacement: 0% Station: Ballotable Membranes: Intact Heart Rate: 120's Accelerations: No Accelerations Decelerations: Late Decelarations Varibility: Minimum Contractions on Admission: None Last 72 hourBlood Glucose Bedside Glucose - 72 Hours Test 08/02/16 08:43 08/02/16 10:38 08/02/16 12:36 08/02/16 15:27 Bedside Glucose 89mg/dL (70-220) 101mg/dL (70-220) 100mg/dL (70-220) 95mg/dL (70-220) Last 72 hours Lab Results CBC & BMP 08/01/16 22:50 Liver Function Test 08/01/16 22:50 Alanine Aminotransferase (ALT/SGPT) 18 Albumin 3.3 Alkaline Phosphatase 170 H Aspartate Amino Transf (AST/SGOT) 16 Direct Bilirubin 0.00 Total Protein 6.5 GABO NUNEZ MD August 02, 2016 18:19
--- NOTE | 2016-08-02 18:21 | OPR ---
DATE OF OPERATION: 08/02/2016 PREOPERATIVE DIAGNOSES: 1. Intrauterine at 37 weeks' gestation. 2. complicated with type 2 diabetes. 3. Nonreassuring heart tracing, recommended by the perinatologist delivery. POSTOPERATIVE DIAGNOSES: 1. A 37 weeks' . 2. Type 2 diabetes. 3. Nonreassuring heart tracing category 3, recommended by perinatologist delivery. PROCEDURE PERFORMED: Primary transverse low cervical section. SURGEON: Gabo Nunez MD ROLL FORMING MACHINE SET UP MECHANIC: Viktoriya Zimmerman MD ANESTHESIA: Spinal. ANESTHESIOLOGIST: Shonna Nelson MD FINDINGS: Live baby girl with the 9 and 9. DETAILS OF THE PROCEDURE: Under satisfactory spinal anesthesia, the patient was prepped and draped and placed in supine position, tilted to the left. Pfannenstiel incision was made, carried through the subcutaneous tissue. Bleeders brought under control with electrocautery. Fascia incised to the length of the incision. Rectus muscle divided in midline. Peritoneum exposed, entered through a t ransverse incision. Exploration of the abdomen revealed a gravid uterus, normal-appearing tubes and ovaries. Bladder flap was developed. Transverse incision was made in the lower segment of the matthieu arvin. Amniotic sac ruptured. Clear amniotic fluid noted. Live baby girl was delivered from unengag ed vertex. Nasal oropharyngeal suction was performed and baby handed to the team for immed iate attention. The patient received 20 units of Pitocin. Placenta delivered manually intact. [place] rine cavity cleaned with wet sponge and drainage established. Uterus closed in 2 layers using Monoc ryl #1 in continuous fashion. Peritoneal cavity irrigated with warm saline. Sponge, needle and ins trument reported to be correct. Abdominal peritoneum closed with 2-0 chromic catgut continuously. Rectus muscle approximated with 2 interrupted 2-0 chromic catgut. Fascia closed with #1 PDS in a continuous fashion. Subcutaneous t issue approximated with 2-0 chromic catgut. Skin closed with marie. Estimated blood loss 600 mL. Urine bag contained 200 mL of clear urine. The patient tolerated procedure well, transferred to r ecovery room in a good condition. Dictated By: GABO NUNEZ MD HF/NTS Conf#: [id number] DID#: [id number]
[2016-08-02 21:00] VITALS: BP 105/70; PULSE 65; RESP 18
[2016-08-02 22:00] VITALS: BP 119/75; PULSE 54; RESP 20
[2016-08-02] MEDS ORDERED: METHYLERGONOVINE 0.2 MG INJ IM PRN (22:00)
[2016-08-02] MEDS ORDERED: CEFAZOLIN 1 GM/50 ML (PMX) 50 ML IVPB SCH (22:00)
[2016-08-02] MEDS ORDERED: MISOPROSTOL 200 MCG TAB PR PRN (22:00)
[2016-08-02] MEDS ORDERED: OXYCODONE/ACETAMINOPHEN (5/325) TAB PO PRN (22:00)
[2016-08-02] MEDS ORDERED: ACETAMINOPHEN/CODEINE #3 TAB PO PRN ×2 (22:00)
[2016-08-02] MEDS ORDERED: CARBOPROST 250 MCG INJ IM PRN (22:00)
[2016-08-02] MEDS ORDERED: OXYTOCIN 30 UNITS/LR 500 ML IV PRN (22:00)
[2016-08-02] MEDS ORDERED: LANOLIN 7 GM TUBE TOP PRN (22:00)
[2016-08-02 23:00] VITALS: BP 116/66; PULSE 60; RESP 20
--- NOTE | 2016-08-02 23:03 | NSTRPT ---
NST Information Datetime Report Generated by CPN: 08/02/2016 23:03 Datetime: 08/01/2016 13:52 NST Information EGA: 36.6 Test Number: 8 Time on Monitor: 08/01/2016 13:54 Time off Monitor: 08/01/2016 14:45 NST Duration (Min): 51 Reason for NST: Diabetes Mellitus; Other Reason for NST Other: type II Test and Monitor Explained: Monitor Explained; Test Explained; Verbalized Understanding; Breastfee ding Info Given Pulse: 65 Resp: 18 SBP: 108 DBP: 65 Test Evaluation NST Interventions: PO Hydration; Reposition Patient; Acoustic Stimulation Patient States Movement: Present Contraction Frequency: x4(mild) FHR Baseline : 150 Variability: Moderate 6-25bpm Accelerations: 10X10 FHR Category: Category II NST Results: Questionable Comments: pt did only NST. strip reviewed by Dr. Espinoza before pt's discharge. Report given to Dr. Bhatti. New orders received. Pt scheduled for induction tonite. explained to pt Plan of care. pt sta nixon understanding. -Pt Home undelivered with PTL precautions. Kick Count instructions reviewed . Pt states understanding. No further questions asked at this time. Electronically Signed By E-Signature: with User ID: [id number] Datetime: 07/30/2016 13:55 NST Information EGA: 36.4 Test Number: 7 Time on Monitor: 07/30/2016 14:09 Time off Monitor: 07/30/2016 14:51 NST Duration (Min): 42 Reason for NST: Diabetes Mellitus; Other Reason for NST Other: Type II Test and Monitor Explained: Monitor Explained; Test Explained; Verbalized Understanding; Breastfee ding Info Given Pulse: 78 Resp: 18 SBP: 107 DBP: 59 Test Evaluation NST Interventions: Acoustic Stimulation Patient States Movement: Present Contraction Frequency: x#(denies) FHR Baseline : 150 Variability: Minimal - <=5bpm Accelerations: 10X10 Decelerations: None FHR Category: Category II NST Results: Questionable Provider Notified: Dr Espinoza, Dr Bhatti Comments: To u/s, FAUSTINA 16.6, Cephalic NST Reviewed by Dr Espinoza, recommends extended EFM. 1500-Report called to Dr Bhatti, cha varghese ed to send to triage with follow up NST for 08/01. 1507-Report given to Maddie RN, Triage. 1510-POC explained to pt, states understanding and denies further questions at this time. Pt to triage. Datetime: 07/26/2016 14:49 NST Information EGA: 36.0 NST Duration (Min): 47 Datetime: 07/20/2016 14:16 NST Information EGA: 35.1 NST Duration (Min): 43 Datetime: 07/18/2016 14:21 NST Information EGA: 34.6 NST Duration (Min): 40 Datetime: 07/16/2016 13:40 NST Information EGA: 34.4 NST Duration (Min): 78 Datetime: 07/12/2016 14:12 NST Information EGA: 34.0 NST Duration (Min): 59 Datetime: 07/02/2016 09:31 NST Information EGA: 32.4 NST Duration (Min): 231
[2016-08-02] MEDS: OXYTOCIN 30 UNITS/LR 500 ML IV SCH (23:35)
[2016-08-03 00:13] VITALS: BP 113/59; PULSE 59; RESP 20
[2016-08-03 04:00] VITALS: BP 106/64; PULSE 65; RESP 18
[2016-08-03] MEDS: OXYTOCIN 30 UNITS/LR 500 ML IV SCH ×6 (04:40→21:52)
--- NOTE | 2016-08-03 06:59 | PN ---
Date/Time of Note Date/Time of Note DATE: 08/03/16 TIME: 06:57 Assessment/Plan VTE Prophylaxis VTE Prophylaxis Intervention: ambulation Lines/Catheters IV Catheter Type (from Nrsg): Peripheral IV Subjective 24 Hr Interval Summary Free Text/Dictation Anesthesia Note: A 36 year females/ p spinal with duramorph POD 1 is doig fine, no Headache, N/V , itching, pain is controlled, back is clean. care per surgery team. Exam/Review of Systems Vital Signs Vitals Vital Signs Date Time Temp Pulse Resp B/P Pulse Ox O2 Delivery O2 Flow Rate FiO2 08/03/16 04:00 98.6 65 18 106/64 Room Air Intake and Output 08/02/16 08/02/16 08/03/16 15:00 23:00 07:00 Intake Total 1420 ml 3637 ml 673 ml Output Total 1350 ml 1973 ml 550 ml Balance 70 ml 1664 ml 123 ml Results Result Diagram: 08/01/16 2250 08/01/16 2250 Results 24 hrs Laboratory Tests Test 08/02/16 08:43 08/02/16 10:38 08/02/16 12:36 08/02/16 15:27 Bedside Glucose 89 101 100 95 Medications Medications Current Medications Naloxone HCl (Narcan) 0.1 mg Q2M PRN IV FOR RESP RATE 8 OR LESS; Start at 18:00; Stop 08/03/16 at 17:59 Ketorolac Tromethamine (Toradol) 30 mg Q6H PRN IV PAIN; Start 08/02/16 at 18:00 ; Stop 08/03/16 at 17:59 Hydromorphone HCl (Dilaudid) 1 mg Q3H PRN IV BREAKTHROUGH PAIN; Start 08/02/16 at 18:00; Stop 08/03/16 at 17:59 Hydromorphone HCl (Dilaudid) 0.2 mg Q3H PRN IV PAIN LEVEL 1-5; Start 08/02/16 at 18:00; Stop 08/03/16 at 17:59 Hydromorphone HCl (Dilaudid) 0.4 mg Q3H PRN IV PAIN LEVEL 6-10; Start 08/02/16 at 18:00; Stop 08/03/16 at 17:59 Diphenhydramine HCl (Benadryl) 25 mg Q6H PRN IV ITCHING; Start 08/02/16 at 18: 00; Stop 08/03/16 at 17:59 Ondansetron HCl (Zofran Inj) 4 mg Q6H PRN IV NAUSEA AND/OR VOMITING; Start 02/08 at 18:00; Stop 08/03/16 at 17:59 Acetaminophen/ Codeine Phosphate (Tylenol No.3) 1 tab Q4H PRN PO PAIN LEVEL 4-6 ; Start 08/02/16 at 22:00 Acetaminophen/ Codeine Phosphate (Tylenol No.3) 2 tab Q4H PRN PO PAIN LEVEL 7- 10; Start 08/02/16 at 22:00 Oxycodone/ Acetaminophen (Percocet (5/ 325)) 1 tab Q4H PRN PO PAIN LEVEL 4-6; Start 08/02/16 at 22:00 Oxycodone/ Acetaminophen (Percocet (5/ 325)) 2 tab Q4H PRN PO PAIN LEVEL 7-10; Start 08/02/16 at 22:00 Ibuprofen (Motrin) 600 mg Q6 PO ; Start 08/03/16 at 18:00 Simethicone (Mylicon) 160 mg Q8H PRN PO DISTENSION/GAS/BLOATING; Start at 22:00 Senna/Docusate Sodium (Senokot-S) 1 tab BID PO ; Start 08/03/16 at 09:00 Diphtheria/ Tetanus/Acell Pertussis 0.5 ml 0.5 ml ONCE ONCE IM* ; Start at 09:00; Stop 08/05/16 at 09:01 Oxytocin/Lactated Ringer's 500 ml @ 0 mls/hr ONCE PRN IV For Hemorrhage Management; Start 08/02/16 at 22:00 Methylergonovine Maleate (Methergine) 0.2 mg ONCE PRN IM VAGINAL BLEEDING; Start 08/02/16 at 22:00 Carboprost Tromethamine (Hemabate) 250 mcg ONCE PRN IM VAGINAL BLEEDING; Start 08/02/16 at 22:00 Misoprostol 1000 mcg 1,000 mcg ONCE PRN NE VAGINAL BLEEDING; Start 08/02/16 at 22:00 Oxytocin/Lactated Ringer's 500 ml @ 125 mls/hr Q4H IV Last administered on t 04:40; Admin Dose 125 MLS/HR; Start 08/02/16 at 21:52 TISHA PINTO MD August 03, 2016 06:59
[2016-08-03 08:00] VITALS: BP 91/54; PULSE 56; RESP 18
[2016-08-03 08:05] LABS: ADD SCAN DIFF NO
[2016-08-03 08:18] LABS: BASOPHILS % 0.3 % (0.0-2.0); EOSINOPHILS # 0.1 10^3/ul (0.0-0.5); HEMATOCRIT 32.7 % (37.0-47.0); HEMOGLOBIN 11.5 g/dl (12.0-16.0); LYMPHOCYTES # 1.8 10^3/ul (0.8-2.9); LYMPHOCYTES % 16.7 % (15.0-51.0); MEAN CORPUSCULAR HEMOGLOBIN 32.4 pg (29.0-33.0); MEAN CORPUSCULAR HGB CONC 35.2 g/dl (32.0-37.0); MEAN CORPUSCULAR VOLUME 92.1 fl (82.0-101.0); MEAN PLATELET VOLUME 10.2 fl (7.4-10.4); MONOCYTE # 0.5 10^3/ul (0.3-0.9); NEUTROPHIL # 8.3 10^3/ul (1.6-7.5); NEUTROPHILS % 76.6 % (39.0-77.0); PLATELET COUNT 157 10^3/UL (140-415); RED BLOOD COUNT 3.55 10^6/ul (4.20-5.40); RED CELL DISTRIBUTION WIDTH 13.2 % (11.5-14.5); WHITE BLOOD COUNT 10.9 10^3/ul (4.8-10.8)
[2016-08-03] MEDS: SENNA/DOCUSATE NA (8.6MG/50MG) TAB PO SCH ×2 (09:32→22:10)
[2016-08-03 12:00] VITALS: BP 101/56; PULSE 63; RESP 18
--- NOTE | 2016-08-03 12:05 | NSTRPT ---
NST Information Datetime Report Generated by CPN: 08/03/2016 12:05 Datetime: 07/30/2016 13:55 Electronically Signed By E-Signature: with User ID: [id number], Addendum/Amendment: FHTs vega not meet criteria for reactivity. Patient to hospital for prolonged m onitoring
[2016-08-03] MEDS ORDERED: GLUCOSE GEL 15 GRAM TUBE BUCCAL PRN (12:30)
[2016-08-03] MEDS ORDERED: GLUCOSE GEL 15 GRAM TUBE PO PRN ×2 (12:30)
[2016-08-03] MEDS ORDERED: GLUCAGON 1 MG INJ IM PRN (12:30)
[2016-08-03] MEDS ORDERED: DEXTROSE 50% 50 ML SYRINGE IV PRN ×2 (12:30)
[2016-08-03 16:00] VITALS: BP 106/70; PULSE 65; RESP 18
[2016-08-03] MEDS: IBUPROFEN 600 MG TAB PO SCH (17:49)
[2016-08-03] MEDS: metFORMIN 500 MG TAB PO SCH (17:54)
[2016-08-03] MEDS: INSULIN ASPART [NOVOLOG] 3 ML PEN SC SCH ×2 (17:55→21:00)
[2016-08-03] MEDS: OXYCODONE/ACETAMINOPHEN (5/325) TAB PO PRN (18:52)
[2016-08-03 20:00] VITALS: BP 106/66; PULSE 74; RESP 16
[2016-08-04] MEDS: IBUPROFEN 600 MG TAB PO SCH ×5 (00:07→23:33)
[2016-08-04] MEDS: OXYTOCIN 30 UNITS/LR 500 ML IV SCH ×3 (01:52→09:52)
[2016-08-04] MEDS: ACCU-CHEK XX SCH (02:00)
[2016-08-04 04:00] VITALS: BP 103/59; PULSE 57; RESP 20
[2016-08-04 08:00] VITALS: BP 96/65; PULSE 58; RESP 17
[2016-08-04] MEDS: INSULIN ASPART [NOVOLOG] 3 ML PEN SC SCH ×4 (08:05→21:00)
[2016-08-04] MEDS: metFORMIN 500 MG TAB PO SCH ×2 (08:41→17:47)
[2016-08-04] MEDS: SENNA/DOCUSATE NA (8.6MG/50MG) TAB PO SCH ×2 (08:42→20:42)
[2016-08-04] MEDS: OXYCODONE/ACETAMINOPHEN (5/325) TAB PO PRN ×2 (08:46→17:26)
--- NOTE | 2016-08-04 13:07 | PN ---
Date/Time of Note Date/Time of Note DATE: 08/04/16 TIME: 13:05 OB Subjective Subjective Subjective Post day 2 Afebrile VSs stable abdomen soft good bowel sounds no bowel movement, fasting glucose 92 currently on metformin 500 mg twice daily as a whole she is doing well plan of possible a.m. discharge discussed with the patient. GABO NUNEZ MD August 04, 2016 13:07
[2016-08-04] MEDS ORDERED: NA PHOSPHATE/BIPHOS 133 ML ENEMA PR ONE (13:30)
[2016-08-04 15:30] VITALS: BP 107/74; PULSE 63; RESP 17
[2016-08-04 20:50] VITALS: BP 110/73; PULSE 64; RESP 18
[2016-08-05] MEDS: ACCU-CHEK XX SCH (02:00)
[2016-08-05 04:00] VITALS: BP 113/66; PULSE 60; RESP 18
[2016-08-05] MEDS: IBUPROFEN 600 MG TAB PO SCH ×2 (05:32→12:00)
[2016-08-05 08:00] VITALS: BP 102/72; PULSE 54; RESP 16
[2016-08-05] MEDS: INSULIN ASPART [NOVOLOG] 3 ML PEN SC SCH ×2 (08:05→11:50)
[2016-08-05] MEDS: SENNA/DOCUSATE NA (8.6MG/50MG) TAB PO SCH (08:48)
[2016-08-05] MEDS: metFORMIN 500 MG TAB PO SCH (08:48)
[2016-08-05] MEDS ORDERED: DIPHTH/TET/ACEL PERTUSS (ADULT) 0.5 ML VIAL IM* ONE (09:00)
--- NOTE | 2016-08-05 10:39 | PD.PPDC ---
AUTOMATIC PINSETTER MECHANIC Discharge Instruction Condition Patient Condition: Good Diet Diet: Special Diet Activity/Restrictions Activity: Normal Activity May Shower Restrictions: No Exercising No Lifting No Driving No Sexual Activity Nothing in the Vagina No Barlow No Tampons, douche Follow-up Follow-up with Physician: 4, Day/Days Return to clinic for [employer] MAINTENANCE Instructions: Fever greater than 101 Chills Worsening abdominal pain Excessive Vaginal Bleeding More than 2 pads per hour Unable to tolerate diet OB Instructions: Breast Tenderness Depression Blurried Vision Headache Surgical Instructions: Incisional Drainage Incisional Redness GABO NUNEZ MD August 05, 2016 10:39
--- NOTE | 2016-08-05 11:05 | DS ---
Date/Time of Note Date/Time of Note DATE: 08/05/16 TIME: 10:51 Discharge Summary Admission/Discharge Info Admit Date/Time August 01, 2016 at 22:20 Discharge Date/Time August 05 10:50 AM Final Diagnosis Third day post due to nonreassuring heart tracing type2 diabetes insulin-dependent is being discharged home, patient's postoperative course in the hospital has been uneventful had no problem with bowel function or urination incision inspected on the third postoperative day found free of inflammation and infection her glucose level during this admission has been within normal on metformin 500 mg daily ,she is being discharged with follow-up instructions to be seen at the clinic in 4 days for post evaluation and removal of marie at the time of discharge patient received a prescription for Motrin and Tylenol 3 and metformin 500 mg. Patient Condition: Good Procedures Primary Hx of Present Illness 37 weeks nonreassuring heart tracing category 3, type 2 diabetic recommended delivery by the perinatologist Hospital Course Satisfactory uneventful Home Meds Reported Medications Insulin Human Regular (Novolin-R U-100) 100 Unit/Ml Soln, 8 SC QHS, EA 07/02/16 Insulin Human Regular (Novolin-R U-100) 100 Unit/Ml Soln, 7 SC AC DINNER, EA 07/02/16 Insulin Human Nph (Novolin-N) 100 Units/Ml Susp, 9 SQ AC BREAKFAST 07/02/16 Insulin Human Regular (Novolin-R U-100) 100 Unit/Ml Soln, 6 UNITS SC AC BREAKFAST, EA 07/02/16 Ferrous Sulfate (Iron) 325 Mg Capsule.er, 325 MG PO DAILY, CAP 05/04/16 Multivit/Min/Fol Ac/Iron/Pren* ( S*) 1 Tab Tab, 1 TAB PO DAILY, TAB 05/04/16 Follow-up Plan Advised patient to stop all medication for her diabetes except metformin 500 mg daily to continue on vitamin and ferrous sulfate also she was given a prescription of Motrin and Tylenol 3 for post pain Pending Labs Laboratory Tests Test 08/04/16 11:20 08/04/16 15:37 08/04/16 20:23 08/05/16 08:13 Bedside Glucose 114mg/dL (70-220) 102mg/dL (70-220) 127mg/dL (70-220) 81mg/dL (70-220) GABO NUNEZ MD August 05, 2016 11:01
[2016-08-05] MEDS: OXYCODONE/ACETAMINOPHEN (5/325) TAB PO PRN (11:42)
== END 2016-08-05 16:07 | disposition home or self-care (01) | DRG 766 ==
LOC: L-D 22:20 → PP1 08-02 20:50
PROVIDERS: ADMIT Obstetrics & Gynecology; ATTEND Obstetrics & Gynecology
PROC: 10D00Z1 Extraction of Products of Conception, Low, Open Approach (ICD-10-PCS; principal; 2016-08-02 16:30)
DX: O24.12 Pre-existing type 2 diabetes mellitus, in childbirth (principal); E11.9 Type 2 diabetes mellitus without complications; Z37.0 Single live birth; O76 Abnormality in fetal heart rate and rhythm complicating labor and delivery; Z3A.37 37 weeks gestation of pregnancy; Z79.4 Long term (current) use of insulin
CPT/HCPCS: 76818; 80053; 82962; 85025; 85610; 85730; 86592; 86900; 86901; 88307; 90715; 99464; J0690; J1815; J1885; J2175; J2274; J2590; J2765; J7120

== ENCOUNTER 2016-10-29 14:08 | Emergency (ER) | END 2016-10-29 17:58 | disposition home or self-care (01) | DX: R10.84 Generalized abdominal pain (principal); E10.9 Type 1 diabetes mellitus without complications | CPT/HCPCS: 36415; 74176; 80053; 81001; 82962; 83690; 85025; 99285; J7030 ==